=== PATIENT | female | born 1950 | race Caucasian/White ===

== ENCOUNTER → 2017-06-21 14:04 | Outpatient (POV) | payer MEDICARE, MEDICAID, SELFPAY | PROVIDERS: Visit Provider Nurse Practitioner Acute Care | DX: Z00.00 Encounter for general adult medical examination without abnormal findings (principal) ==

== ENCOUNTER 2017-08-02 08:35 | Day surgery (SDC) | payer MEDICARE, MEDICAID, SELFPAY ==
[2017-08-02] VITALS (7 sets, daily range): BP systolic 101–154; BP diastolic 62–88; PULSE 67–77; RESP 18–20; TEMP 36.6–36.9; O2SAT 95–99
--- NOTE | 2017-08-02 09:07 | HMH.ANESCL ---
[facility] Anesthesia Checklist - Patient Identification Patient Identification: Arm Band, Verbal (Name & ) - Structural Data Admitted From: Home Planned Operative Procedure/s: egd/colon Consent for Planned Operative Procedure(s) Verified: Yes Verified Documents: Surgical Consent - NPO Status Verified Time NPO: 00:00 - Additional verifications Patient : No Anesthesia Reactions: No Hx Blood Transfusions: Yes Blood Transfusion Reaction: No Cephalosporin Allergy: No Previous Colonoscopy: Yes - Cardiovascular Assessment Heart Sounds: S1 & S2 Pulse Strength: Baseline Pulse Rhythm: Regular Peripheral Edema: No - Airway Assessment C-Spine Mobility Assessed: Yes TMJ Mobility Assessed: Yes Dentition: Edentulous - Neurological Assessment Level of Consciousness: Awake, Alert, Appropriate Hx Seizures: No Numbness or tingling in extremities: No - Anesthesia Plan Anesthesia Risk discussed: Yes Anesthesia Plan: Verified ASA Class: III Anesthesia Type: MAC [facility] Anesthesia HX I have reviewed the patient's past medical history: Yes Medical History: Reports:: Coronary Artery Disease, Cerebrovascular Accident (MINI), Diabetes Mellitus Type 2 (iddm), Gastroesophageal Reflux Disease(GERD), Hyperlipidemia, Hypertension, Lung Disease (copd) Denies:: Diabetes Mellitus Type 1, Internal Pacemaker Other Surgeries: Yes: Cardiac Catheterization, Coronary Stent, Hysterectomy-Total, Open Heart Surgery, Other (CHOLECYSECTOMY, CABG,LHC). No: Pacemaker *Family Hx:: Non-contributory
[2017-08-02 09:20] LABS: POC Glucose,Bedside 146 mg/dL (70-110)
--- NOTE | 2017-08-02 09:51 | HMH.PROC ---
[facility] Procedure Note Procedure Note:: Upper Endoscopy Procedure Report: Esophagogastroduodenoscopy with cold biopsies and TTS balloon dilation Endoscopost: Anirudh Blankenship II, MD Referring Physician: Kiera Qeuvedo Date of Procedure: August 02, 2017 Equipment: Olympus GIF 180 standard upper endoscope Sedation: MAC sedation Indications: Mrs. Caraballo is a 66-year-old female with dyspepsia. She has had mostly lower abdominal pain and pressure but some epigastric and generalized abdominal discomfort with bloating. She has noted nausea, reflux, regurgitation and some vomiting. She also has had chronic constipation. She has been on Linzess, pantoprazole and Reglan. She has lost 10 pounds. She does report some dysphagia/globus sensation. Procedure: Prior to the procedure, a history and physical exam was performed, and patient's medications and allergies were reviewed. The risks, benefits and alternatives of the sedation and procedure were discussed with the patient. All questions were answered and informed consent was obtained. The patient was brought to the procedure room. Patient identification and proposed procedure were verified by the physician and the nurse. The patient was placed in a left lateral decubitus position and the scope was passed under direct vision. Throughout the procedure, the patient's blood pressure, pulse, and oxygen saturations were monitored continuously. The upper GI endoscopy was accomplished without difficulty. The patient tolerated the procedure well. Findings: The scope was passed directly into the upper esophagus and advanced to the third portion of the duodenum. The post bulbar duodenum and duodenal bulb were normal with normal mucosa and conniventes. 2 biopsies were taken from the post bulbar duodenum to rule out celiac disease. The scope was withdrawn through a normal duodenal bulb and pylorus into the stomach. There was some pylorospasm. There was bile reflux with linear erythema of the antrum and body of the stomach. The remainder of the antrum, body and fundus of the stomach were grossly normal. Upon retroflexion there was no hiatal hernia. 2 biopsies were taken in the antrum and along the lesser curvature for histology to rule out gastritis and/or H pylori. The scope was then withdrawn into the esophagus. There were tertiary contractions and evidence of moderate esophageal dysmotility. The entire esophagus was dilated to 60 [place]/20 mm with a TTS hydrostatic balloon with some resistance at the cricopharyngeus. The remainder of the esophageal mucosa was normal. Impression: 1. Cricopharyngeal spasm 2. Nonerosive GERD with mild esophageal dysmotility 3. Bile reflux with mild linear reactive gastritis and pylorospasm Plan: I do feel that the patient has functional dyspepsia and IBS-constipation. I will discuss additional dietary measures and treatment options. I will proceed with colonoscopy.
--- NOTE | 2017-08-02 09:55 | P.PCN_ITS ---
[facility] Procedure Note Procedure Note:: Upper Endoscopy Procedure Report: Esophagogastroduodenoscopy with cold biopsies and TTS balloon dilation Endoscopost: Anirudh Blankenship II, MD Referring Physician: Kiera Quevedo Date of Procedure: August 02, 2017 Equipment: Olympus GIF 180 standard upper endoscope Sedation: MAC sedation Indications: Mrs. Caraballo is a 66-year-old female with dyspepsia. She has had mostly lower abdominal pain and pressure but some epigastric and generalized abdominal discomfort with bloating. She has noted nausea, reflux, regurgitation and some vomiting. She also has had chronic constipation. She has been on Linzess, pantoprazole and Reglan. She has lost 10 pounds. She does report some dysphagia/globus sensation. Procedure: Prior to the procedure, a history and physical exam was performed, and patient' s medications and allergies were reviewed. The risks, benefits and alternatives of the sedation and procedure were discussed with the patient. All questions were answered and informed consent was obtained. The patient was brought to the procedure room. Patient identification and proposed procedure were verified by the physician and the nurse. The patient was placed in a left lateral decubitus position and the scope was passed under direct vision. Throughout the procedure, the patient's blood pressure, pulse, and oxygen saturations were monitored continuously. The upper GI endoscopy was accomplished without difficulty. The patient tolerated the procedure well. Findings: The scope was passed directly into the upper esophagus and advanced to the third portion of the duodenum. The post bulbar duodenum and duodenal bulb were normal with normal mucosa and conniventes. 2 biopsies were taken from the post bulbar duodenum to rule out celiac disease. The scope was withdrawn through a normal duodenal bulb and pylorus into the stomach. There was some pylorospasm. There was bile reflux with linear erythema of the antrum and body of the stomach. The remainder of the antrum, body and fundus of the stomach were grossly normal. Upon retroflexion there was no hiatal hernia. 2 biopsies were taken in the antrum and along the lesser curvature for histology to rule out gastritis and/or H pylori. The scope was then withdrawn into the esophagus. There were tertiary contractions and evidence of moderate esophageal dysmotility. The entire esophagus was dilated to 60 [place]/20 mm with a TTS hydrostatic balloon with some resistance at the cricopharyngeus. The remainder of the esophageal mucosa was normal. Impression: 1. Cricopharyngeal spasm 2. Nonerosive GERD with mild esophageal dysmotility 3. Bile reflux with mild linear reactive gastritis and pylorospasm Plan: I do feel that the patient has functional dyspepsia and IBS-constipation. I will discuss additional dietary measures and treatment options. I will proceed with colonoscopy.
--- NOTE | 2017-08-02 09:55 | HMH.PROC ---
[facility] Procedure Note Procedure Note:: Colonoscopy Procedure Report: Colonoscopy Endoscopist: Anirudh Blankenship II, MD Referring physician: Kiera SANCHEZ Date of Procedure: August 02, 2017 Equipment: Olympus 180 variable stiffness pediatric colonoscope Sedation: MAC sedation Indication: Mrs. Caraballo is a 66-year-old female with lower abdominal pain, bloating and marked constipation. She is lost 10 pounds. She does state that her brother and father had colon cancer in their early 70s. She has had no prior screening colonoscopy. She does have moderate dyspepsia. Procedure: Prior to the procedure, a history and physical exam was performed, and patient's medications and allergies were reviewed. The risks, benefits and alternatives of the sedation and procedure were discussed with the patient. All questions were answered and informed consent was obtained. The patient was brought to the procedure room. Patient identification and proposed procedure were verified by the physician and the nurse. The patient was placed in a left lateral decubitus position and the scope was passed under direct vision. Throughout the procedure, the patient's blood pressure, pulse, and oxygen saturations were monitored continuously. The colonoscopy was accomplished without difficulty. The patient tolerated the procedure well. Findings: On digital rectal examination there was normal rectal tone. There were no external hemorrhoids. The colonoscope was introduced through the anal canal to the rectum and advanced to the ascending colon. The right colon and cecum could not be visualized well due to marked amount of dark brown liquid and solid stool with poor preparation. The remaining ascending and transverse colon and mucosa were grossly normal. There were a few scattered diverticuli throughout the descending and sigmoid colon (LEFT colon). The rectum itself was normal. Upon retroflexion within the rectum there were grade 1 internal hemorrhoids. Impression: 1. Left-sided diverticulosis 2. Very poor preparation of right colon ([place] preparation score 5) 3. Grade 1 internal hemorrhoids Plan: Based upon poor screening exam because of preparation, would recommend repeat colonoscopy in one year especially with patient's family history. I would continue to treat dyspepsia and IBS-C.
--- NOTE | 2017-08-02 10:12 | P.PCN_ITS ---
[facility] Procedure Note Procedure Note:: Colonoscopy Procedure Report: Colonoscopy Endoscopist: Anirudh Blankenship II, MD Referring physician: Kiera SANCHEZ Date of Procedure: August 02, 2017 Equipment: Olympus 180 variable stiffness pediatric colonoscope Sedation: MAC sedation Indication: Mrs. Caraballo is a 66-year-old female with lower abdominal pain, bloating and marked constipation. She is lost 10 pounds. She does state that her brother and father had colon cancer in their early 70s. She has had no prior screening colonoscopy. She does have moderate dyspepsia. Procedure: Prior to the procedure, a history and physical exam was performed, and patient' s medications and allergies were reviewed. The risks, benefits and alternatives of the sedation and procedure were discussed with the patient. All questions were answered and informed consent was obtained. The patient was brought to the procedure room. Patient identification and proposed procedure were verified by the physician and the nurse. The patient was placed in a left lateral decubitus position and the scope was passed under direct vision. Throughout the procedure, the patient's blood pressure, pulse, and oxygen saturations were monitored continuously. The colonoscopy was accomplished without difficulty. The patient tolerated the procedure well. Findings: On digital rectal examination there was normal rectal tone. There were no external hemorrhoids. The colonoscope was introduced through the anal canal to the rectum and advanced to the ascending colon. The right colon and cecum could not be visualized well due to marked amount of dark brown liquid and solid stool with poor preparation. The remaining ascending and transverse colon and mucosa were grossly normal. There were a few scattered diverticuli throughout the descending and sigmoid colon (LEFT colon). The rectum itself was normal. Upon retroflexion within the rectum there were grade 1 internal hemorrhoids. Impression: 1. Left-sided diverticulosis 2. Very poor preparation of right colon ([place] preparation score 5) 3. Grade 1 internal hemorrhoids Plan: Based upon poor screening exam because of preparation, would recommend repeat colonoscopy in one year especially with patient's family history. I would continue to treat dyspepsia and IBS-C.
== END 2017-08-02 11:05 | disposition home or self-care (01) ==
PROVIDERS: Visit Provider Internal Medicine Gastroenterology
PROC: 0DJ08ZZ Inspection of Upper Intestinal Tract, Via Natural or Artificial Opening Endoscopic (ICD-10-PCS; CPT 43235; principal; 2017-08-02 09:30)
DX: K57.30 Diverticulosis of large intestine without perforation or abscess without bleeding (principal); K64.0 First degree hemorrhoids; J39.2 Other diseases of pharynx; K21.9 Gastro-esophageal reflux disease without esophagitis; K22.4 Dyskinesia of esophagus; K29.70 Gastritis, unspecified, without bleeding; Z80.0 Family history of malignant neoplasm of digestive organs
CPT/HCPCS: 43239; 43249; 45378; 82962; 88305

== ENCOUNTER → 2017-08-03 17:28 | Outpatient (CLI) | payer MEDICARE, MEDICAID, SELFPAY | PROVIDERS: Visit Provider Podiatrist | DX: B35.1 Tinea unguium (principal) | CPT/HCPCS: 87102; 87206; 87220 ==

== ENCOUNTER → 2017-08-20 09:10 | Outpatient (POV) | payer MEDICARE, MEDICAID, SELFPAY | PROVIDERS: Visit Provider Podiatrist | DX: Z00.00 Encounter for general adult medical examination without abnormal findings (principal) ==

== ENCOUNTER → 2017-08-27 12:32 | Outpatient (CLI) | payer MEDICARE, MEDICAID, SELFPAY ==
--- NOTE | 2017-08-27 | US_ITS ---
US Arterial Ankle Brachial Ind INDICATION: Current smoker, diabetes, bilateral leg pain, bilateral rest pain, bilateral claudication ORDERING PHYSICIAN: Kiera Quevedo PATIENT AGE: 66 years TECHNIQUE: Segmental pressures obtained of both right and left leg. These are compared to brachial blood pressure to yield index at each level sampled including summary AKILAH. The data sheets from the procedure are available in PACS FINDINGS Rest study only performed today No prior studies available for comparison. Blood pressures reported are in millimeters mercury. RIGHT LEG AKILAH = 0.7. Right TBI is 0.5 Brachial BP: 105 Thigh BP: 91 Calf BP: 70 Ankle PT: 75 Ankle DP : 71 Digit =50 LEFT LEG AKILAH = 0.8 Left TBI is 0.5 Brachial BPD: 109 Thigh BP: 83 Calf BP: 77 Ankle PT:86 Ankle DP: 74 Digit = 55 Pulses and waveforms: Diminished pulses and waveforms bilaterally IMPRESSION: 1. The ABIs are low bilaterally consistent with mild atherosclerotic disease. 2. The TBI's are also low consistent with associated small vessel disease
== END ==
PROVIDERS: PCP Nurse Practitioner Family; Visit Provider Nurse Practitioner Family
DX: I73.9 Peripheral vascular disease, unspecified (principal); M79.604 Pain in right leg; M79.605 Pain in left leg
CPT/HCPCS: 93922

== ENCOUNTER → 2017-10-08 09:26 | Outpatient (POV) | payer MEDICARE, MEDICAID, SELFPAY | PROVIDERS: PCP Nurse Practitioner Family; Visit Provider Podiatrist | DX: Z00.00 Encounter for general adult medical examination without abnormal findings (principal) ==

== ENCOUNTER → 2017-11-05 11:12 | Outpatient (POV) | payer MEDICARE, MEDICAID, SELFPAY | PROVIDERS: PCP Nurse Practitioner Family; Visit Provider Podiatrist | DX: Z00.00 Encounter for general adult medical examination without abnormal findings (principal) ==

== ENCOUNTER → 2017-12-07 10:43 | Outpatient (CLI) | payer MEDICARE, MEDICAID, SELFPAY ==
[2017-12-07 12:00] LABS: Basophils # 0.1 K/mm3 (0-0.2); Basophils % 1.2 % (0.1-2.0); Eosinophils # 0.2 K/mm3 (0.0-0.4); Eosinophils % 1.4 % (0.1-12.0); Hematocrit 44.8 % (37.0-47.0); Hemoglobin 14.1 g/dL (12.2-16.2); Lymphocytes # 3.6 K/mm3 (0.7-4.5); Lymphocytes % 30.5 K/mm3 (10-50); Mean Corpuscular HGB Conc 31.4 g/dL (31.8-35.4); Mean Corpuscular Hemoglobin 28.8 pg (27.0-31.2); Mean Corpuscular Volume 91.7 fl (81-99); Mean Platelet Volume 9.5 fl (7.4-10.4); Monocytes # 0.8 K/mm3 (0.1-1.0); Monocytes % 6.2 % (1.7-9.3); Neutrophils # 7.3 K/mm3 (1.8-7.8); Neutrophils % 60.7 % (37.0-80.0); Platelet Count 239 K/mm3 (142-424); Red Blood Count 4.89 M/mm3 (4.20-5.40)
[2017-12-07 12:53] LABS: Alanine Aminotransferase 17 U/L (12-78); Albumin Level 3.6 gm/dL (3.4-5.0); Albumin/Globulin Ratio 1.2 (1.1-1.8); Alkaline Phosphatase 113 U/L (46-116); Anion Gap 9.9 mEq/L (5-15); Aspartate Amino Transferase 11 U/L (15-37); Bilirubin,Total 0.2 mg/dL (0.2-1.0); Blood Urea Nitrogen 8 mg/dL (7-18); Calcium 9.1 mg/dL (8.5-10.1); Carbon Dioxide 29 mmol/L (21.0-32.0); Chloride 106 mmol/L (98-107); Creatinine,Serum 0.82 mg/dL (0.55-1.02); Estimated Glomerular Filt Rate 69 ml/min (>60); Free T4 (Free Thyroxine) 0.69 ng/dl (0.76-1.46); GFR (African American) 84 ML/MIN (>60); Globulin 3.1 gm/dl (1.3-3.2); Glucose 150 mg/dL (74-106); Potassium 4.9 mmoL/L (3.5-5.1); Sodium 140 mmol/L (136-145); Total Protein,Serum 6.7 gm/dL (6.4-8.2)
[2017-12-07 13:02] LABS: Hemoglobin A1C 7.5 % (0.0-7.0)
== END ==
PROVIDERS: PCP Nurse Practitioner Family; Visit Provider Nurse Practitioner Family
DX: R53.83 Other fatigue (principal); I73.9 Peripheral vascular disease, unspecified; E11.42 Type 2 diabetes mellitus with diabetic polyneuropathy; I10 Essential (primary) hypertension
CPT/HCPCS: 36415; 80053; 83036; 84439; 84443; 85025

== ENCOUNTER → 2017-12-17 06:43 | Outpatient (CLI) | payer MEDICARE, MEDICAID, SELFPAY ==
--- NOTE | 2017-12-17 07:09 | NM_ITS ---
History and Indications: Coronary artery disease, previous LA, hypertension, diabetes, hyperlipidemia, tobacco use, shortness of breath, palpitations and fatigue Procedure: Patient received a 0.4 mg of Lexiscan, resting heart rate was 77 beats prominent, resting blood pressure 130/71, with Lexiscan maximum heart rate achieved was 96 bpm which is less than 85% of the maximum predicted heart rate and the blood pressure was 118/66. With Lexiscan patient complained of shortness of breath and chest discomfort Electrocardiogram: Resting electrocardiogram showed sinus rhythm right bundle branch block, with Lexiscan there is less than 1.[address] segment depression noted from the baseline EKG. The EKG portion of the Lexiscan Myoview is nondiagnostic. Cardiac stress and resting SPECT images: Cardiac stress and rest SPECT images were obtained using technetium 99 Myoview 31.2 mCi at stress and 10.4 mCi at rest. Gated SPECT further analysis of segmental wall motion and calculation of the ejection fraction also done. Cardiac stress and rest SPECT images show a mild fixed defect anteroseptally with normal contractility gated SPECT is likely secondary to soft tissue attenuation, no reversible, computer derived ejection fraction is 55% with no obvious regional wall motion abnormality, right ventricle is normal size and contractility. Conclusion: 1. The EKG portion of the Lexiscan Myoview is nondiagnostic. 2. No obvious scintigraphic evidence of reversible ischemia seen, computer derived ejection fraction is 55% with no obvious regional wall motion abnormality, right ventricle is normal size and contractility. 3. Normal Lexiscan Myoview study.
--- NOTE | 2017-12-17 09:12 | HMH.ITSHM ---
gabapentin metoprolol pantoprazole metodopramide aspirin ramitidine montelukust busprone clopidogrel cetirizine magnesium
== END ==
PROVIDERS: PCP Nurse Practitioner Family; Visit Provider Nurse Practitioner Family
DX: R53.83 Other fatigue (principal); I73.9 Peripheral vascular disease, unspecified; I10 Essential (primary) hypertension; I45.2 Bifascicular block; I25.10 Atherosclerotic heart disease of native coronary artery without angina pectoris
CPT/HCPCS: 78452; 93017; A9502; J2785

== ENCOUNTER → 2018-01-25 08:57 | Outpatient (CLI) | payer MEDICARE, MEDICAID, SELFPAY ==
--- NOTE | 2018-01-25 08:57 | CA_ITS ---
PROCEDURE: 2-D M-mode and color Doppler study INDICATIONS FOR THE TEST: Chest pain + COPD Heart Murmur Tobacco Smoking+ Palpitations+ Fatigue+ Syncope Edema Hypertension Diabetes Mellitus+ Rheumatic Fever SOB+PARMAR Obesity Hyperlipidemia+ Family History HD Additional History CABG PATIENT INFORMATION HEIGHT:65 WEIGHT:125 GENDER: Female B/P:98/68 2-D/M-MODE INTERPRETATION: 2-D MEASUREMENTS OBSERVED VALUES IN CMS Right Ventricular Dimension (RVDd) 2.6 Interventricular Septum (Thickness)(IVsd) 1.0 Left Ventricular Internal Dimensions(LVIDd) 3.5 Left Ventricular Posterior Wall (Thickness)(LVPWd) 0.9 Aortic Root 3.7 Aortic Cusp Separation 2.0 Left Atrial Dimensions (LAD) 2.9 2D 1. Left atrium is normal size, left ventricle is normal size, there is no concentric left ventricular hypertrophy, visually estimated ejection fraction approximately 50%, there appears to be mild hypokinesis involving the distal septum and apical wall. 2. The right atrium and right ventricle are normal size and contractility. 3. The aortic valve is minimally thickened and fibrosed. 4. The mitral and tricuspid valve are grossly normal. 5. The pulmonic valve is poorly visualized. 6. No significant pericardial effusion noted. DOPPLER INTERROGATION: Doppler interrogation of the aortic, mitral and tricuspid valvular presence of mild mitral and tricuspid regurgitation, tricuspid regurgitant jet velocity is insufficient for calculation of the right ventricular systolic pressure, diastolic parameters are inconclusive. CONCLUSION: 1. Mildly enlarged, normal left ventricular size, visually estimated ejection fraction 50% with segmental wall motion abnormality described above, diastolic parameters are inconclusive. 2. Mild mitral and tricuspid regurgitation 3. No significant pericardial effusion noted.
--- NOTE | 2018-01-25 08:57 | US_ITS ---
US Arterial Ankle Brachial Ind History: Breast pain, claudication, smoker ITS.REASON: claudication ORDERING PHYSICIAN: Ibrahima Musa MD PATIENT AGE: 67 years TECHNIQUE: Segmental pressures obtained of both right and left leg. These are compared to brachial blood pressure to yield index at each level sampled including summary AKILAH. The data sheets from the procedure are available in PACS FINDINGS Rest study only performed today No prior studies available for comparison. Blood pressures reported are in millimeters mercury. RIGHT LEG AKILAH = .6. RIGHT LEG TBI=.2 Brachial BP: 128 Thigh BP: 98 Calf BP: 74 Ankle PT: 72 Ankle DP : 79 Digit =27 LEFT LEG AKILAH = .7 LEFT LEG TBI= .4 Brachial BPD: 117 Thigh BP: 110 Calf BP: 79 Ankle PT:88 Ankle DP: 90 Digit = 47 Pulses and waveforms: Diminished pulses and waveforms IMPRESSION: Low right and left ABIs of 0.6 and 0.7 respectively indicating moderate peripheral vascular disease
== END ==
PROVIDERS: PCP Nurse Practitioner Family; Visit Provider Internal Medicine
DX: R06.00 Dyspnea, unspecified (principal); I73.9 Peripheral vascular disease, unspecified; F17.200 Nicotine dependence, unspecified, uncomplicated
CPT/HCPCS: 93306; 93922

== ENCOUNTER → 2018-06-08 08:45 | Outpatient (CLI) | payer MEDICARE, MEDICAID, SELFPAY ==
--- NOTE | 2018-06-08 08:52 | US_ITS ---
US Arterial Ankle Brachial Ind History: Bilateral leg pain, recent stents with pain bilaterally. Current smoker, diabetes ORDERING PHYSICIAN: Kiera Quevedo PATIENT AGE: 67 years TECHNIQUE: Segmental pressures obtained of both right and left leg. These are compared to brachial blood pressure to yield index at each level sampled including summary AKILAH. The data sheets from the procedure are available in PACS FINDINGS Rest study only performed today No prior studies available for comparison. Blood pressures reported are in millimeters mercury. RIGHT LEG AKILAH = 1.1. RIGHT LEG TBI=.42 Brachial BP: 120 Thigh BP: >254 Calf BP: 119 Ankle PT: 136 Ankle DP : 139 Digit =51 LEFT LEG AKILAH = 1.0 LEFT LEG TBI= .4 Brachial BPD: 121 Thigh BP: 113 Calf BP: 115 Ankle PT:117 Ankle DP: 110 Digit = 44 Pulses and waveforms: Normal waveforms. Dorsalis pedis pulses are diminished bilaterally IMPRESSION: 1. Normal ABIs on both sides 2. Low TBI on both sides suggesting small vessel disease
--- NOTE | 2018-06-08 09:21 | XR_ITS ---
EXAM: XR thoracic spine 3V HISTORY: ITS.REASON: THORACIC SPINE PAIN Comparison: 02/09/2018 FINDINGS: There is moderate thoracic kyphosis with mild chronic wedging anteriorly of T10 and T11 unchanged from 02/09/2018. 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 There is an epidural stimulator device present at the T10 level. The extraspinal portion of the device lies within the subcutaneous tissues at the T11 and T12 area. Cannot confirm that the device is protruding into the scan from this study. No significant change from 02/09/2018. 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 Epidural stimulator device once again noted as described above. CT may provide further evaluation if there is concern that the device wires may be protruding into the skin
== END ==
PROVIDERS: PCP Family Medicine; Visit Provider Nurse Practitioner Family
DX: I73.9 Peripheral vascular disease, unspecified (principal); M54.6 Pain in thoracic spine
CPT/HCPCS: 72072; 93922

== ENCOUNTER → 2018-07-15 09:43 | Outpatient (CLI) | payer MEDICARE, MEDICAID, SELFPAY ==
--- NOTE | 2018-07-15 09:46 | XR_ITS ---
XR DEXA axial skeleton HISTORY: ITS.REASON: OSTEOPENIA ORDERING PHYSICIAN: Kiera Quevedo PATIENT AGE: 67 years COMPARISON: 09/12/2009 FINDINGS: The BMD measured at the Right femoral neck is 0.658 g/cm squared with a T score of -2.7. This is considered OSTEOPOROTIC according to the World Health Organization criteria. Fracture risk is High. Treatment is advised. The mean hip density has a T score of -2.3 which has decreased by 16%. Lumbar spine density has decreased by 1% from 09/12/2009 IMPRESSION: Osteoporosis with high fracture risk. Treatment suggested. Suggest follow-up exam in one year
== END ==
PROVIDERS: PCP Nurse Practitioner Family; Visit Provider Nurse Practitioner Family
DX: M85.89 Other specified disorders of bone density and structure, multiple sites (principal)
CPT/HCPCS: 77080

== ENCOUNTER → 2018-10-03 09:35 | Outpatient (CLI) | payer MEDICARE, MEDICAID, SELFPAY ==
--- NOTE | 2018-10-03 09:39 | XR_ITS ---
XR forearm RT 2V HISTORY: Pain following injury with bruising ITS.REASON: RT FOREARM INJURY ORDERING PHYSICIAN: Kiera Quevedo APRN PATIENT AGE: 68 years COMPARISON: None FINDINGS: No obvious fracture, dislocation, lytic change or blastic change. Normal mineralization. Unremarkable soft tissues IMPRESSION: Negative forearm
== END ==
PROVIDERS: PCP Nurse Practitioner Family; Visit Provider Nurse Practitioner Family
DX: S59.911A Unspecified injury of right forearm, initial encounter (principal)
CPT/HCPCS: 73090

== ENCOUNTER 2018-10-21 07:24 | Day surgery (SDC) | payer MEDICARE, MEDICAID, SELFPAY ==
[2018-10-21] VITALS (20 sets, daily range): BP systolic 125–154; BP diastolic 76–96; PULSE 66–87; RESP 16–18; TEMP 36.4; O2SAT 94–100; BMI 18.6
--- NOTE | 2018-10-21 | IR_ITS ---
CARDIAC CATHETERIZATION DATE OF CATHETERIZATION:10/21/2018 10:35 AM PROCEDURES: 1. Left heart catheterization 2. Selective coronary angiogram 3. Left ventriculogram Left internal mammary angiography Selective engagement of the saphenous vein graft to the right coronary artery Selective engagement of the saphenous vein graft to the circumflex artery INDICATION FOR TEST: 1. Coronary artery disease 2. Angina pectoris 3. History of coronary artery bypass surgery 4. History of coronary artery stenting 5. Accelerated angina pectoris COMPLICATIONS: None ESTIMATED BLOOD LOSS: Less than 10 ml. TECHNIQUE: One percent lidocaine was used to anesthetize the right groin. The right femoral artery was accessed via the Seldinger technique. A 4-[place] Island[place] sheath was placed in the right femoral artery. The JR-4 catheter was also used to perform left heart catheterization and left ventriculography. The JR4 catheter was used to selectively intubate each saphenous vein graft as well as nonselectively engage the left internal mammary artery. At the end of the procedure the patient was transferred to the post-op holding area in stable condition for arterial sheath removal. ANGIOGRAPHIC RESULTS: 1. The left main artery normal 2. The left anterior descending artery has proximal stent which has initially 30% in-stent restenosis followed by mid vessel 80% complex in-stent restenosis. Competitive flow is identified distally from the left internal mammary artery. 3. The circumflex artery has severe proximal disease with 90% in-stent restenosis at mid segment and then occluded prior to giving off a substantive obtuse marginal arteries 4. The right coronary artery is subtotally occluded in the mid segment 5. The STAPLES ventriculogram reveals preserved 60% 6. The left ventricular end-diastolic pressure 10 mmHg The left internal mammary artery is widely patent to the mid LAD. Distal to the anastomosis there is excellent filling of a small to medium sized caliber LAD system The saphenous vein graft to the right coronary artery is widely patent Saphenous vein graft to the circumflex which artery has a stent mid segment which is widely patent with minimal in-stent restenosis. Graft itself is widely patent IMPRESSION: 1. 2. PLAN: 1. 2. 3.
[2018-10-21 09:05] LABS: Anion Gap 16.1 mEq/L (5-15); Blood Urea Nitrogen 5 mg/dL (7-18); Calcium 9.3 mg/dL (8.5-10.1); Carbon Dioxide 25 mmol/L (21.0-32.0); Chloride 104 mmol/L (98-107); Creatinine Clearance Estimated 43 mL/min (50-200); Creatinine,Serum 0.86 mg/dL (0.55-1.02); Estimated Glomerular Filt Rate 65 ml/min (>60); GFR (African American) 79 ML/MIN (>60); Glucose 143 mg/dL (74-106); Potassium 4.1 mmoL/L (3.5-5.1); Sodium 141 mmol/L (136-145)
[2018-10-21 09:06] LABS: Basophils # 0.1 K/mm3 (0-0.2); Basophils % 0.8 % (0.1-2.0); Eosinophils # 0.1 K/mm3 (0.0-0.4); Eosinophils % 0.6 % (0.1-12.0); Hematocrit 45.5 % (37.0-47.0); Hemoglobin 14.4 g/dL (12.2-16.2); Lymphocytes # 2.9 K/mm3 (0.7-4.5); Lymphocytes % 20.6 % (10-50); Mean Corpuscular HGB Conc 31.6 g/dL (31.8-35.4); Mean Corpuscular Hemoglobin 28.3 pg (27.0-31.2); Mean Corpuscular Volume 89.4 fl (81-99); Mean Platelet Volume 8.6 fl (7.4-10.4); Monocytes # 0.9 K/mm3 (0.1-1.0); Monocytes % 6.3 % (1.7-9.3); Neutrophils % 71.7 % (37.0-80.0); Platelet Count 290 K/mm3 (142-424); Red Blood Count 5.09 M/mm3 (4.20-5.40); Red Cell Distribution Width 16.3 % (11.5-17.5); White Blood Count 13.9 K/mm3 (4.8-10.8)
== END 2018-10-21 14:06 | disposition home or self-care (01) ==
LOC: CATHLAB 07:26
PROVIDERS: PCP Family Medicine; Visit Provider Internal Medicine
DX: I25.118 Atherosclerotic heart disease of native coronary artery with other forms of angina pectoris (principal); Z95.1 Presence of aortocoronary bypass graft; Z95.5 Presence of coronary angioplasty implant and graft; Z72.0 Tobacco use; J44.9 Chronic obstructive pulmonary disease, unspecified; Z79.4 Long term (current) use of insulin; Z79.82 Long term (current) use of aspirin; Z79.84 Long term (current) use of oral hypoglycemic drugs; Z79.899 Other long term (current) drug therapy; Z79.02 Long term (current) use of antithrombotics/antiplatelets; Z88.1 Allergy status to other antibiotic agents; I45.2 Bifascicular block; I77.89 Other specified disorders of arteries and arterioles
CPT/HCPCS: 80048; 85025; 93459; 99152; C1725; C1769; C1894; J1644; Q9967

== ENCOUNTER → 2018-10-31 15:04 | Outpatient (CLI) | payer MEDICARE, MEDICAID, SELFPAY ==
--- NOTE | 2018-10-31 15:08 | XR_ITS ---
XR chest 2V HISTORY: Shortness of breath, heart disease ITS.REASON: SOB ORDERING PHYSICIAN: Kiera Quevedo APRN PATIENT AGE: 68 years COMPARISON: None FINDINGS: Prior CABG. Coronary artery stents are present. COPD. No lobar consolidation or collapse. There is mild exaggeration of thoracic kyphosis. There is minimal blunting of the right CP angle. IMPRESSION: COPD with trace right effusion, prior CABG with coronary artery stents
== END ==
PROVIDERS: PCP Nurse Practitioner Family; Visit Provider Nurse Practitioner Family
DX: R06.02 Shortness of breath (principal)
CPT/HCPCS: 71046

== ENCOUNTER → 2018-12-05 09:00 | Outpatient (POV) | payer MEDICARE, MEDICAID, SELFPAY | PROVIDERS: Visit Provider Nurse Practitioner Family | DX: Z00.00 Encounter for general adult medical examination without abnormal findings (principal) ==

== ENCOUNTER → 2019-02-15 12:31 | Outpatient (CLI) | payer MEDICARE, SELFPAY ==
--- NOTE | 2019-02-15 12:34 | XR_ITS ---
PROCEDURE: XR CHEST 2V CLINICAL HISTORY: wheezing Wheezing and cough, smoker COMPARISON: CXR CHEST(2 VIEWS-NOT PORTABLE) from 04/22/2016 CXR2V XR chest 2V from 02/09/[address] angio chest from 02/09/2018 XR RIBS LT MIN 3V W CXR1V from 01/28/2019 FINDINGS: Prior CABG. Epidural stimulator device is noted over the mid to lower thoracic spine. Coronary artery stent is present. The lungs are clear without infiltrates, suspicious nodules, or pleural effusions. No acute bony abnormalities. 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 No change with no acute finding Dictated by: James Griggs MD 02/15/2019 14:22 Electronically signed by James Griggs MD in [place] 02/15/2019 14:22
== END ==
PROVIDERS: PCP Nurse Practitioner Family; Visit Provider Nurse Practitioner Family
DX: R06.2 Wheezing; R00.2 Palpitations; I20.9 Angina pectoris, unspecified; E78.5 Hyperlipidemia, unspecified; F17.200 Nicotine dependence, unspecified, uncomplicated; Z95.1 Presence of aortocoronary bypass graft
CPT/HCPCS: 71046

== ENCOUNTER → 2019-02-28 13:55 | Outpatient (CLI) | payer MEDICARE, SELFPAY ==
--- NOTE | 2019-02-28 14:00 | CT_ITS ---
PROCEDURE: CT HEAD/BRAIN WO CON CLINICAL INDICATION: DIZZINESS COMPARISON: HDWO CT HEAD W/O CONTRAST from 03/24/2016 TECHNIQUE: Axial images obtained with sagittal and coronal reformats. All CT scans at the facility use one or more dose reduction, viz: automated exposure control, ma/kV adjustment per patient size (including targeted exams where dose is matched to indication, i.e. head), or iterative reconstruction technique. FINDINGS: No midline shift, mass effect, intracranial hemorrhage, hydrocephalus, or extra-axial fluid collection is evident. The calvarium has an unremarkable appearance. No mastoid effusion. No sinus air-fluid level. IMPRESSION: No acute intracranial finding Dictated by: Ned Garcia 02/28/2019 14:18 Electronically signed by Ned Garcia in [facility] 02/28/2019 14:18
== END ==
PROVIDERS: PCP Nurse Practitioner Family; Visit Provider Nurse Practitioner Family
DX: R42 Dizziness and giddiness (principal)
CPT/HCPCS: 70450

== ENCOUNTER → 2019-07-31 08:22 | Outpatient (CLI) | payer MEDICARE, SELFPAY ==
--- NOTE | 2019-07-31 08:24 | CA_ITS ---
APPROVED REPORT Generator Worker: Celine Hidalgo RVT Laterality: Bilateral Study Quality: Good Indications: verftigo, dizziness Risk Factors Hypertension: Hyperlipidemia Diabetes Smoking Doppler Spectral Velocity Analysis ECA (R) 100.60/0.60 cm/s ECA (L) 80.00/3.90 cm/s dICA (R) 73.00/19.90 cm/s dICA (L) 68.80/15.10 cm/s Eliezer (R) 69.70/20.60 cm/s Eliezer (L) 66.60/10.60 cm/s pICA (R) 52.10/12.70 cm/s pICA (L) 80.30/21.20 cm/s dCCA (R) 59.00/10.50 cm/s dCCA (L) 58.40/14.10 cm/s pCCA (R) 84.20/11.90 cm/s pCCA (L) 70.30/8.50 cm/s Vert (R) 30.30/8.50 cm/s Vert (L) 54.30/11.20 cm/s ICA/CCA 1.24 ICA/CCA 1.37 Conclusion Study suggests 20-49% stenosis of the right internal cartoid artery worsened from the 12/23/15 study. Study suggests 20-49% stenosis of the left internal cartoid artery worsened from the 12/23/15 study. Antegrade flow seen bilateral vertebral arteries. Electronically signed by : James Griggs MD 07/31/2019 17:44:33
[2019-08-01 13:07] LABS: Vitamin B12 216 pg/mL (232-1245)
== END ==
PROVIDERS: PCP Nurse Practitioner Family; Visit Provider Specialist
DX: G47.00 Insomnia, unspecified (principal); G89.29 Other chronic pain; H91.91 Unspecified hearing loss, right ear; M54.2 Cervicalgia; M54.5 Low back pain; R20.0 Anesthesia of skin; R20.2 Paresthesia of skin; R20.8 Other disturbances of skin sensation; R26.81 Unsteadiness on feet; R29.6 Repeated falls; R42 Dizziness and giddiness; Z72.0 Tobacco use
CPT/HCPCS: 36415; 82607; 93880; 94762

== ENCOUNTER 2019-07-31 10:05 | Outpatient (RCR) | payer MEDICARE, SELFPAY ==
--- NOTE | 2019-07-31 11:32 | HMH.PTOPEV ---
PT Outpatient Evaluation Rehab PT Outpatient Evaluation Start: 07/31/19 11:12 Freq: Status: Active Protocol: Document 07/31/19 11:12 DEBI (Rec: 07/31/19 11:32 DEBI [id number]) Electronically Signed By Eddie Mendoza, PT 07/31/19 11:12 Outpatient Therapy Subjective History Subjective History Pt reports h/o chronic LBP over the last ~2 yrs, and reports B LE pain and weakness . Pt reports 2 falls in the last ~month, and reports 2-3 episodes of dizziness/wk. 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 Pt also reports R>L LE swelling. Chief Complaint Pain,Stiff,Swelling,Weakness Symptom Type Ache,Sharp,Dull,Numbness, Tingling Symptoms Relieved By Rest/Positioning,Heat Symptoms Aggravated By Standing,Bending/Stooping, Walking,Lifting Prior Functional Limitations Lifting,Housework,Standing, Walking,Balance Current Functional Limitations Housework,Standing,Walking, Balance Symptom Description Constant and Continuous Level of pain today (0-10) 10 Pain scale - at its best (0-10) 10 Pain scale - at its worst (0-10) 10 Lumbopelvic Eval Posture Thoracic Spine Posture Standing Position Increased Kyphosis Lumbar Spine Posture Standing Position Flattened Assistive device Assistive Devices None / NA Gait Observation General Gait Pattern Observation Hips Posterior to SALONI,Trunk Posterior to SALONI Palapation tenderness bilateral thoracic spinal tenderness Yes: 3/4 lumbar spinal tenderness Yes: 3/4 paraspinal tenderness Yes: 3/4 Lumbar/Sacral Palpation Findings Tenderness Accessory Movement T-spine Vertebrae Accessory Movements Central P/A [place] that Elicit Symptoms T10 bilateral T11 bilateral T12 bilateral L-spine Vertebrae Accessory Movements Central [employer] [place] that Elicit Symptoms L2 bilateral L3 bilateral L4 bilateral L5 bilateral S1 bilateral Range of Motion Lumbar Spine Active Flexion Range of 0-10 Motion (degrees) Lumbar Spine Active Extension Range of 0-10 Motion (degrees) Left Lumbar Spine Lateral Flexion Active 0-10 Range of Motion (degrees) Right Lumbar Spine Lateral Flexion 0-10 Active Range of Motion (deg
--- NOTE | 2019-08-09 10:35 | HMH.RHREAS ---
Rehab Reassessment Rehab OP Re-assessment Start: 08/09/19 10:21 Freq: Status: Active Protocol: Document 08/09/19 10:21 PHORNE (Rec: 08/09/19 10:34 PHORNE [id number]) Electronically Signed By Jethro Almonte, PT 08/09/19 10:21 Rehab Re-assessment Subjective Subjective Pt presents to therapy this date with reports of continued vertigo/dizziness/balance disturbance for > 6 mos. She has significant hx of CVA with R hemiparesis, CAD with CABG and stents, HTN, chronic low back and neck pain, hearing loss R > L, blurry vision with cataracts, mod stenosis of B carotid arteries, PVD. She reports dizziness lasts ~ 20 mins each session and 4-5 sessions/wk. She also reports frequent feeling of lightheadedness. Objective Objective Notes Pt is unable to tolerate positioning for renee-halpike testing or horizontal roll testing for BPPV. She can not tolerate positioning for most oculomotor and gaze stabilization testing due to increased neck pain. She was able to tolerate smooth pursuit which was normal, but unable to perform VOR cancellation or dynamic visual acuity testing. She also had difficulty with testing for saccades and difficulty following directions during most testing procedures. Assessment Progress Assessment No Progress Assessment Notes Pt was evlauated for low back symptoms previously, but did not return for further visits and reports she is unlikely to return for treatment. Unable to fully assess any visual disturbances or vestibular pathology at this time. It was recommended that she seek treatment from an ENT for further testing if she wished
== END 2019-07-31 11:00 | disposition home or self-care (01) ==
LOC: PT 10:05
PROVIDERS: PCP Nurse Practitioner Family; Visit Provider Specialist
DX: M54.2 Cervicalgia (principal); M54.5 Low back pain; G89.29 Other chronic pain; R26.81 Unsteadiness on feet; R42 Dizziness and giddiness; R29.6 Repeated falls; R20.0 Anesthesia of skin; R20.2 Paresthesia of skin
CPT/HCPCS: 97010; 97014; 97035; 97163; 97164; G0283

== ENCOUNTER → 2019-09-11 08:33 | Outpatient (POV) | payer MEDICARE, SELFPAY | PROVIDERS: PCP Nurse Practitioner Family; Visit Provider Specialist | DX: R20.0 Anesthesia of skin (principal) | CPT/HCPCS: 95886; 95909 ==

== ENCOUNTER → 2019-09-11 11:10 | Outpatient (CLI) | payer MEDICARE, SELFPAY ==
[2019-09-14 07:20] LABS: Intrinsic Factor Abs, Serum 1.2 AU/mL (0.0-1.1)
[2019-09-14 18:44] LABS: Antiparietal Cell Antibody 18.8 Units (0.0-20.0)
== END ==
PROVIDERS: Visit Provider Specialist
DX: D51.9 Vitamin B12 deficiency anemia, unspecified (principal); R42 Dizziness and giddiness; R20.0 Anesthesia of skin; R20.2 Paresthesia of skin
CPT/HCPCS: 36415; 83516; 86340; 95886; 95909

== ENCOUNTER → 2019-10-27 10:21 | Outpatient (CLI) | payer MEDICARE, SELFPAY ==
--- NOTE | 2019-10-27 10:28 | XR_ITS ---
PROCEDURE: XR ANKLE RT MIN 3V CLINICAL INDICATION: RT ANKLE SWELLING laterally COMPARISON: None FINDINGS: There is mild diffuse soft tissue swelling both medially and laterally. The medial and lateral malleolus appear intact the ankle mortise appears grossly normal. There is a moderate-sized spur of the calcaneus at the insertion of the Achilles tendon and a tiny calcaneal spur seen at the insertion of the plantar tendon. IMPRESSION: Mild diffuse soft tissue swelling, no definite acute fracture seen Dictated by: Dr. Tacos Chakraborty MD 10/27/2019 11:[address] Tacos Chakraborty MD in [place] 10/27/2019 11:01
== END ==
PROVIDERS: PCP Nurse Practitioner Family; Visit Provider Nurse Practitioner Family
DX: M25.471 Effusion, right ankle (principal)
CPT/HCPCS: 73610

== ENCOUNTER → 2019-11-01 09:48 | Outpatient (CLI) | payer MEDICARE, MEDICAID, SELFPAY ==
--- NOTE | 2019-11-01 | CA_ITS ---
APPROVED REPORT Field Artillery Cannoneer: CICI Laterality: Bilateral Indications: MATTY Risk Factors TIA/CVA History Smoking Doppler Spectral Velocity Analysis ECA (R) 98.80/10.50 cm/s ECA (L) 106.90/8.70 cm/s dICA (R) 98.80/28.40 cm/s dICA (L) 89.00/27.70 cm/s Eliezer (R) 77.80/21.70 cm/s Eliezer (L) 104.80/31.40 cm/s pICA (R) 68.10/18.00 cm/s pICA (L) 98.00/23.90 cm/s dCCA (R) 66.60/18.00 cm/s dCCA (L) 68.80/14.20 cm/s pCCA (R) 97.30/13.50 cm/s pCCA (L) 97.30/15.00 cm/s Vert (R) 47.10/15.00 cm/s Vert (L) 59.70/13.50 cm/s ICA/CCA 1.48 ICA/CCA 1.52 Conclusion Duplex evaluation demonstrates stenosis of the right proximal internal carotid artery in the range of 20-49% with PSV <140 cm/sec, EDV <100 cm/sec, and IC/CC Ratio <4.0. Duplex evaluation demonstrates stenosis of the left proximal internal carotid artery in the range of 20-49% with PSV <140 cm/sec, EDV <100 cm/sec, and IC/CC Ratio <4.0. Electronically signed by : James Griggs MD 11/01/2019 16:20:06
== END ==
PROVIDERS: PCP Nurse Practitioner Family; Visit Provider Nurse Practitioner Family
DX: G45.8 Other transient cerebral ischemic attacks and related syndromes (principal)
CPT/HCPCS: 93880

== ENCOUNTER → 2020-02-09 13:38 | Outpatient (CLI) | payer MEDICARE, SELFPAY ==
[2020-02-11 08:40] LABS: Covid-19 Nasal PCR Sendout UK Not Detected
== END ==
PROVIDERS: PCP Nurse Practitioner Family; Visit Provider Nurse Practitioner Family
DX: Z03.818 Encounter for observation for suspected exposure to other biological agents ruled out (principal)
CPT/HCPCS: U0003

== ENCOUNTER → 2020-02-29 09:38 | Outpatient (CLI) | payer MEDICARE, SELFPAY ==
--- NOTE | 2020-02-29 09:45 | XR_ITS ---
PROCEDURE: XR KNEE RT 3V Referring Doctor: Kiera Quevedo Patient Age:69Y CLINICAL INDICATION: SWELLING ACUTE PAIN S/P KNEE SURG COMPARISON: No exams were available for comparison FINDINGS: Right knee. Three view AP lateral and oblique nonweightbearing images performed with no images for comparison. No fracture or dislocation. No lytic or blastic change. There is normal mineralization. . Of degenerative changes right knee. Mild narrowing and sclerosis about lateral compartment. Mild/Moderate developing tricompartmental marginal osteophytes. Upper normal to perhaps mild increased joint fluid suprapatellar bursa. Long vascular stent segment at the distal SFA and continuing through the popliteal artery IMPRESSION: No acute findings. Arthritic changes right knee. Most evident at lateral compartment followed by patellofemoral joint Scant increased joint fluid likely at suprapatellar bursa Dictated by: Theodore Calderón MD 02/29/2020 14:18 Theodore Calderón MD in [facility] 02/29/2020 14:18
== END ==
PROVIDERS: PCP Nurse Practitioner Family; Visit Provider Nurse Practitioner Family
DX: M25.461 Effusion, right knee (principal); M25.561 Pain in right knee; Z98.890 Other specified postprocedural states
CPT/HCPCS: 73562

== ENCOUNTER → 2020-05-21 10:32 | Outpatient (CLI) | payer MEDICARE, MEDICAID, SELFPAY ==
[2020-05-21 10:57] LABS: Basophils # 0.1 K/mm3 (0-0.2); Basophils % 1.2 % (0.1-2.0); Eosinophils # 0.2 K/mm3 (0.0-0.4); Eosinophils % 1.5 % (0.1-12.0); Hematocrit 39.9 % (37.0-47.0); Hemoglobin 12.7 g/dL (12.2-16.2); Lymphocytes # 3.6 K/mm3 (0.7-4.5); Lymphocytes % 35.3 % (10-50); Mean Corpuscular HGB Conc 31.8 g/dL (31.8-35.4); Mean Corpuscular Hemoglobin 28.4 pg (27.0-31.2); Mean Corpuscular Volume 89.1 fl (81-99); Mean Platelet Volume 8.9 fl (7.4-10.4); Monocytes # 0.8 K/mm3 (0.1-1.0); Monocytes % 7.7 % (1.7-9.3); Neutrophils # 5.5 K/mm3 (1.8-7.8); Neutrophils % 54.2 % (37.0-80.0); Platelet Count 329 K/mm3 (142-424); Red Blood Count 4.48 M/mm3 (4.20-5.40); Red Cell Distribution Width 16.2 % (11.5-17.5); White Blood Count 10.1 K/mm3 (4.8-10.8)
[2020-05-21 11:07] LABS: Chloride 106 mmol/L (98-107); Potassium 4.7 mmoL/L (3.5-5.1); Sodium 139 mmol/L (136-145)
[2020-05-21 11:09] LABS: Alanine Aminotransferase 10 U/L (12-78); Aspartate Amino Transferase 21 U/L (14-36); Blood Urea Nitrogen 10 mg/dl (7-17); Estimated Glomerular Filt Rate 71 ml/min (>60); GFR (African American) 86 ML/MIN (>60)
[2020-05-21 11:10] LABS: Albumin Level 4.2 g/dl (3.5-5.0); Albumin/Globulin Ratio 1.3 (1.1-1.8); Alkaline Phosphatase 103 U/L (38-126); Anion Gap 10.7 mEq/L (5-15); Bilirubin,Total 0.4 mg/dl (0.2-1.3); Calcium 9.5 mg/dl (8.4-10.2); Carbon Dioxide 27 mmol/L (22.0-30.0); Chol/HDL Ratio 3.2 (1-3.5); Cholesterol 221 mg/dl (140-200); Globulin 3.2 g/dL (1.3-3.2); Glucose 128 mg/dl (74-100); HDL Cholesterol 69 mg/dl (40-60); Total Protein,Serum 7.4 g/dl (6.3-8.2); Triglycerides 261 mg/dl (30-150); VLDL Cholesterol 52 mg/dL (0-40)
[2020-05-21 11:21] LABS: Direct LDL Cholesterol 113.48 mg/dL (100-129)
[2020-05-21 11:25] LABS: Troponin I < 0.01 ng/ml (0.00-0.034)
[2020-05-22 12:04] LABS: C-Reactive Protein, Cardiac 0.61 mg/L (0.00-3.00)
== END ==
PROVIDERS: Visit Provider Nurse Practitioner Family
DX: R07.9 Chest pain, unspecified (principal); I25.810 Atherosclerosis of coronary artery bypass graft(s) without angina pectoris
CPT/HCPCS: 36415; 80053; 80061; 83735; 84484; 85025; 86141

== ENCOUNTER → 2020-05-28 10:20 | Outpatient (CLI) | payer MEDICARE, MEDICAID, SELFPAY ==
[2020-05-28 11:13] LABS: Basophils # 0.1 K/mm3 (0-0.2); Basophils % 1.1 % (0.1-2.0); Eosinophils # 0.1 K/mm3 (0.0-0.4); Hematocrit 40.7 % (37.0-47.0); Hemoglobin 12.3 g/dL (12.2-16.2); Mean Corpuscular HGB Conc 30.2 g/dL (31.8-35.4); Mean Corpuscular Hemoglobin 27.5 pg (27.0-31.2); Mean Platelet Volume 8.6 fl (7.4-10.4); Monocytes # 0.7 K/mm3 (0.1-1.0); Monocytes % 6.3 % (1.7-9.3); Neutrophils # 6.9 K/mm3 (1.8-7.8); Neutrophils % 63.6 % (37.0-80.0); Platelet Count 300 K/mm3 (142-424); Red Blood Count 4.48 M/mm3 (4.20-5.40); Red Cell Distribution Width 16.3 % (11.5-17.5); White Blood Count 10.8 K/mm3 (4.8-10.8)
[2020-05-28 11:30] LABS: Troponin I < 0.01 ng/ml (0.00-0.034)
[2020-05-28 12:41] LABS: Coronavirus 19 IgG Antibody Negative (Negative); Coronavirus 19 IgM Antibody Negative (Negative)
[2020-05-28 16:21] LABS: Chloride 106 mmol/L (98-107); Potassium 4.8 mmoL/L (3.5-5.1); Sodium 137 mmol/L (136-145)
[2020-05-28 16:24] LABS: Anion Gap 8.8 mEq/L (5-15); Blood Urea Nitrogen 7 mg/dl (7-17); Calcium 9.6 mg/dl (8.4-10.2); Carbon Dioxide 27 mmol/L (22.0-30.0); Estimated Glomerular Filt Rate 71 ml/min (>60); GFR (African American) 86 ML/MIN (>60); Glucose 133 mg/dl (74-100)
== END ==
PROVIDERS: Visit Provider Nurse Practitioner Family
DX: E11.42 Type 2 diabetes mellitus with diabetic polyneuropathy (principal); E78.2 Mixed hyperlipidemia; I45.2 Bifascicular block; R06.09 Other forms of dyspnea; Z95.1 Presence of aortocoronary bypass graft; F17.200 Nicotine dependence, unspecified, uncomplicated; Z79.4 Long term (current) use of insulin; I20.0 Unstable angina; Z01.810 Encounter for preprocedural cardiovascular examination; Z03.818 Encounter for observation for suspected exposure to other biological agents ruled out
CPT/HCPCS: 36415; 80048; 84484; 85025; 86328

== ENCOUNTER 2020-06-19 08:36 | Day surgery (SDC) | payer MEDICARE, MEDICAID, SELFPAY ==
[2020-06-19] VITALS (13 sets, daily range): BP systolic 124–154; BP diastolic 73–91; PULSE 69–81; RESP 16–18; TEMP 36.6; O2SAT 91–99; BMI 20.9
--- NOTE | 2020-06-19 08:58 | IR_ITS ---
APPROVED REPORT Patient Location: Outpatient Country Sales Manager: FILOMENA Dill RT (R) PROCEDURES Left heart catheterization Left ventriculogram Selective coronary angiogram Left internal mammary angiography Selective engage in the saphenous vein graft to the circumflex artery Selective gating the saphenous vein graft to the right coronary Drug-eluting stent deployment to the saphenous vein graft supplying the circumflex artery INDICATION Known coronary disease, History of coronary bypass surgery, Accelerated angina pectoris Informed consent was obtained prior to the procedure. COMPLICATIONS none Estimated Blood Loss: less than 10 mls TECHNIQUE One percent lidocaine used to anesthetize the right groin. The right femoral artery was accessed via the Seldinger technique and a 5 Libyan sheath was placed in the right femoral artery. A JL 4, JR4 catheter were used to perform left heart catheterization, left ventriculogram selective coronary angiography as well as selective engagement of the 2 vein grafts and the left internal mammary artery. At the end the diagnostic angiogram therapeutic heparin was administered giving a therapeutic ACT and the 5 Libyan sheath was exchanged for a 6 [place]yan sheath. An LCB guide catheter was used to intubate the saphenous vein graft to the circumflex artery and a Choice PT extra-support wire was placed distally. A 3 mm x 38 mm resolute Sim stent was deployed at 18 roberta reducing the severe tandem stenoses to 0%. ARIADNA-3 flow was present before and after the procedure. At the end of the procedure the apparatus was removed the groin was reprepped gloves were changed sheath was removed good hemostasis was achieved using Perclose device patient was transferred to the postop putting in stable addition ANGIOGRAPHIC RESULTS The left main artery Is patent The left anterior descending artery Has a stent in the ostial proximal through mid segment. 60 to 70% stenosis in the distal aspect of the stent. Competitive flow is identified from the left internal mammary artery however antegrade flow is achieved down the LAD. Distally there is a long 90% stenosis as the vessel approaches and wraps the apex The circumflex artery Is a dominant vessel and proximally occluded distally the vessel reconstitutes via left to left collaterals The right coronary artery Is probably a nondominant dominant and subtotally occluded in the proximal mid segment The STAPLES ventriculogram reveals Ejection fraction 45 to 50% The left ventricular end-diastolic pressure 10 mmHg The FISHER graft to the LAD is widely patent The saphenous vein graft to the circumflex artery has tandem 80% stenoses proximal and distal to the stent in the vein graft distally this supplies a moderate to large circumflex system Saphenous vein graft to the right coronary artery is widely patent. This is a narrow graft with no significant stenosis. The posterior descending artery is a smaller system distally IMPRESSION Severe stenosis within the saphenous vein graft supplying the large circumflex system Successful stenting of the saphenous vein graft supplying circumflex system severe tandem lesions reduced to 0% with one long drug-eluting stent Slightly reduced ejection fraction Normal left ventricular end-diastolic pressure Coronary artery disease as described above PLAN 1. Plavix and aspirin 2. LDL less than 55 3. Cardiac rehabilitation 4. Avoidance of tobacco products 5. Aggressive risk factor modification Electronically signed by : Ibrahima Musa, 06/19/2020 12:29:53
[2020-06-19 10:00] LABS: Coronavirus 19 IgG Antibody Negative (Negative); Coronavirus 19 IgM Antibody Negative (Negative)
[2020-06-19 14:15] LABS: CATHL Activated Clotting Time 250 SEC (74-125)
--- NOTE | 2020-06-19 15:57 | HMH.PHACLD ---
Madie Caraballo has received discharge medication counseling on the following medications: PATIENT STARTED ON ALTACE 2.5 MG DAILY AND ATORVASTATIN 40 MG HS. PATIENT CURRENTLY TAKING METOPROLOL SUCCINATE 50 MG DAILY, CLOPIDOGREL 75 MG DAILY, ASPIRIN DR 81 MG DAILY.
== END 2020-06-19 15:38 | disposition home or self-care (01) ==
LOC: CATHLAB 08:38
PROVIDERS: PCP Nurse Practitioner Family; Visit Provider Internal Medicine
DX: E11.42 Type 2 diabetes mellitus with diabetic polyneuropathy (principal); E78.2 Mixed hyperlipidemia; Z72.0 Tobacco use; I45.2 Bifascicular block; R94.31 Abnormal electrocardiogram [ECG] [EKG]; Z95.1 Presence of aortocoronary bypass graft; I25.110 Atherosclerotic heart disease of native coronary artery with unstable angina pectoris
CPT/HCPCS: 85347; 86328; 92937; 93459; 99152; 99153; C1725; C1760; C1769; C1876; C1894; C9604; J1644; Q9967

== ENCOUNTER → 2020-09-19 09:55 | Outpatient (CLI) | payer MEDICARE, MEDICAID, SELFPAY ==
--- NOTE | 2020-09-19 | CA_ITS ---
APPROVED REPORT Right Lower Extremity Venous Study for DVT. Parking Meter Servicer: Celine Hidalgo RVT Indications Lower Extremity Pain: Right Lower Extremity Edema: Right History of Smoking RT ANKLE SWELLING,PRIOR STENTS RLE,HLD Vein Imaging CFV (R): compressive, spontaneous, phasic, augmentation FEM (R): compressive, spontaneous, phasic, augmentation POP (R): compressive, spontaneous, phasic, augmentation PTV (R): Non-Compressible, Thrombus GSV (R): Compressible Peroneals (R):Compressible GAS (R): Compressible Findings Study suggests DVT of the right posterior tibial vein. Other deep veins of the right lower extremity are normal. Study suggests no evidence of SVT of the right lower extremity. Conclusion Study suggests DVT of the right posterior tibial vein. Other deep veins of the right lower extremity are normal. Study suggests no evidence of SVT of the right lower extremity. Critical Notification Physician Notified Date: 09/19/2020 Time: 11:13 Physician Name: Gurpreet Quevedo's office Electronically signed by : James Griggs MD 09/19/2020 16:54:18
--- NOTE | 2020-09-19 10:10 | XR_ITS ---
PROCEDURE INFORMATION: Exam: XR Right Ankle Exam date and time: 09/19/2020 10:10 AM Age: 70 years old Clinical indication: Pain; Ankle; Right; Additional info: Acute RT ankle pain TECHNIQUE: Imaging protocol: XR Right ankle. Views: 3 or more views. COMPARISON: CR XR ANKLE RT MIN 3V 10/27/2019 10:34 AM FINDINGS: Bones/joints: There is diffuse demineralization. There is no fracture or subluxation. Soft tissues: There is no soft tissue swelling. IMPRESSION: No acute fracture.
== END ==
PROVIDERS: PCP Nurse Practitioner Family; Visit Provider Nurse Practitioner Family
DX: M79.604 Pain in right leg (principal); M25.571 Pain in right ankle and joints of right foot
CPT/HCPCS: 73610; 93971

== ENCOUNTER 2020-10-13 14:56 | Emergency (ER) | payer MEDICARE, MEDICAID, SELFPAY ==
[2020-10-13] VITALS (10 sets, daily range): BP systolic 107–152; BP diastolic 69–84; PULSE 80–102; RESP 16–29; TEMP 36.5; O2SAT 95–98; BMI 21.1
--- NOTE | 2020-10-13 15:03 | ECG_ITS ---
APPROVED REPORT Exam: Resting ECG HR:93 bpm ECG Measurements Heart Rate 93 AXES SC 148 P 7 QRSd 120 QRS -51 QT 394 T 72 QTc 489 Conclusion Normal sinus rhythm Right bundle branch block Left anterior fascicular block Bifascicular block Moderate voltage criteria for LVH, may be normal variant Abnormal ECG Electronically signed by : Harrison Jama, 10/13/2020 16:37:31
--- NOTE | 2020-10-13 15:07 | HMH.EDGENADL ---
ED Disposition Clinical Impression: Bronchitis Rib fractures Qualifiers: Encounter type: initial encounter Fracture type: closed Laterality: right Qualified Code(s): S22.41XA - Multiple fractures of ribs, right side, initial encounter for closed fracture Back contusion Qualifiers: Encounter type: initial encounter Laterality: unspecified laterality Qualified Code(s): S20.229A - Contusion of unspecified back wall of thorax, initial encounter Contusion, hip Qualifiers: Encounter type: initial encounter Laterality: right Qualified Code(s): S70.01XA - Contusion of right hip, initial encounter Disposition: Home, Self-Care Condition on Discharge: Good Instructions: How to Prevent Falls, DI for Rib Fracture, DI for Acute Bronchitis, DI for Contusion, DI for Thoracic Back Pain, DI for Low Back Pain Additional Instructions: Tylenol 3 as needed for pain. Zithromax as prescribed. Follow-up with your primary care doctor within the next 2 to 3 days, call tomorrow to make appointment. Return to the emergency department if difficulty breathing, fever, uncontrollable pain. Prescriptions: Acetaminophen with Codeine [Tylenol with Codeine #3 tablet] 1 tab PO Q6HP PRN #12 tab PRN Reason: Moderate Pain Transmission Status: Sent to [facility] Azithromycin [Zithromax 250mg tab] 250 mg PO DAILY #4 tab Transmission Status: Pending to [facility] Referrals: Kiera Quevedo APRN [Primary Care Provider] - - Critical Care Critical Care Time: No Attestation: On , the high probability of a clinically significant, sudden or life threatening deterioration of the following system(s) required my full and direct attention, intervention and personal management. The time I documented below is in addition to time spent performing reported procedures but includes the following listed in this critical care notation. Medical Decision Making - Andrew Inquiry Pt receiving controlled substance: No Vital Signs: 10/13/20 14:57 10/13/20 15:03 10/13/20 15:30 Temperature 97.7 F Temperature Source Oral Pulse Rate 92 H 91 H Pulse Rate [Right] 91 H Respiratory Rate 16 22 Blood Pressure 131/84 125/77 Blood Pressure [Right Arm] 131/84 Blood Pressure Mean [Right Arm] 99 02 Sat by Pulse Oximetry 95 98 97 Oxygen Delivery Method Room Air 10/13/20 15:50 10/13/20 16:45 10/13/20 17:00 Temperature Temperature Source Pulse Rate 92 H 91 H 89 Pulse Rate [Right] Respiratory Rate 16 19 19 Blood Pressure 115/70 128/76 142/73 H Blood Pressure [Right Arm] Blood Pressure Mean [Right Arm] 02 Sat by Pulse Oximetry 97 98 98 Oxygen Delivery Method 10/13/20 17:30 10/13/20 17:51 10/13/20 18:00 Temperature Temperature Source Pulse Rate 80 102 H Pulse Rate [Right] Respiratory Rate 18 29 H 18 Blood Pressure 120/69 152/81 H 136/78 Blood Pressure [Right Arm] Blood Pressure Mean [Right Arm] 02 Sat by Pulse Oximetry 97 98 Oxygen Delivery Method - Lab Data Lab Results 10/13/20 15:27: WBC 11.3 H, RBC 4.30, Hgb 11.5 L, Hct 38.2, MCV 88.8, MCH 26.6 L, MCHC 30.0 L, RDW 15.9, Plt Count 342, MPV 8.4, Neut % (Auto) 64.1, Lymph % (Auto) 25.8, Morris % (Auto) 8.3, Eos % (Auto) 0.9, Baso % (Auto) 0.9, Neut # (Auto) 7.3, Lymph # (Auto) 2.9, Morris # (Auto) 0.9, Eos # (Auto) 0.1, Baso # (Auto) 0.1 10/13/20 15:27: Sodium 135 L, Potassium 4.4, Chloride 103, Carbon Dioxide 25, Anion Gap 11.4, BUN 7, Creatinine 0.70, Estimated Creat Clear 41, Estimated GFR 82, Est GFR ( Amer) 100, Glucose 123 H, Calcium 8.9, Troponin I < 0.01 Result diagrams: 10/13/20 15:27 10/13/20 15:27 Orders (Tests/Meds): ED MEDICATIONS Discontinued Medications Generic Name Dose Route Start Last Admin Trade Name Freq PRN Reason Stop Dose Admin Acetaminophen/Codeine Phosphate 1 yakov 10/13/20 18:18 Acetaminophen 300mg W/Codeine 30mg Take Home Pack (6) PO 10/13/20 18:19 ONCE ONE Iopamidol
--- NOTE | 2020-10-13 15:18 | XR_ITS ---
PROCEDURE INFORMATION: Exam: XR Right Hip Exam date and time: 10/13/2020 3:18 PM Age: 70 years old Clinical indication: Injury or trauma; Fall; Blunt trauma (contusions or hematomas); Right; Hip TECHNIQUE: Imaging protocol: XR Right hip. Views: 2 or 3 views hip with pelvis when performed. COMPARISON: CT ABDOMEN PELVIS W CON 10/13/2020 4:07 PM FINDINGS: Bones/joints: Normal anatomic alignment. There is no evidence of acutely displaced fractures. There is no evidence of dislocation. No aggressive osseous lesions. Soft tissues: There is no significant soft tissue swelling. Vasculature: Vascular stents project in the right inguinal region. There are numerous benign phleboliths in the pelvis. IMPRESSION: Negative for acute skeletal pathology.
--- NOTE | 2020-10-13 15:22 | CT_ITS ---
PROCEDURE INFORMATION: Exam: CT Abdomen And Pelvis With Contrast Exam date and time: 10/13/2020 3:22 PM Age: 70 years old Clinical indication: Injury or trauma; Fall; Blunt; Generalized TECHNIQUE: Imaging protocol: Computed tomography of the abdomen and pelvis with contrast. Radiation optimization: All CT scans at this facility use at least one of these dose optimization techniques: automated exposure control; mA and/or kV adjustment per patient size (includes targeted exams where dose is matched to clinical indication); or iterative reconstruction. Contrast material: ISOVUE; Contrast volume: 100 ml; Contrast route: IV; COMPARISON: CT ABDOMEN PELVIS W CON 04/02/2019 6:40 PM FINDINGS: Liver: There is a diffuse decrease in hepatic parenchymal density, consistent with fatty infiltration. The liver demonstrates punctate calcifications, consistent with remote granulomatous organism exposure. The liver is otherwise unremarkable. Gallbladder and bile ducts: Prior cholecystectomy. There is no evidence of biliary ductal dilation. Pancreas: Normal. No ductal dilation. Spleen: The spleen demonstrates punctate calcifications, consistent with remote granulomatous organism exposure. The spleen is otherwise unremarkable. Adrenal glands: Normal. No mass. Kidneys and ureters: Horseshoe kidney. Bilateral parapelvic renal cysts. 3 cm cyst in the medullary breach of the horseshoe kidney. Old these renal findings are stable. No acute renal findings are appreciated. The ureters are normal. Stomach and bowel: No bowel obstruction or significant bowel wall thickening. There is excessive colonic stool content. Appendix: A normal appendix is identified. Intraperitoneal space: Unremarkable. No free air. No significant fluid collection. Vasculature: The vasculature demonstrates diffuse marked atherosclerotic calcification. Right femoral artery stents. Lymph nodes: Unremarkable. No enlarged lymph nodes. Urinary bladder: Unremarkable as visualized. Reproductive: There has been a hysterectomy. Bones/joints: No acute skeletal pathology. Moderate multilevel degenerative changes of the spine, as manifested by multilevel anterior osteophytes and multilevel decrease in intervertebral disc space. Soft tissues: Posttraumatic soft tissue swelling lateral to the right iliac bone. Mild posttraumatic soft tissue swelling in the right buttock. IMPRESSION: 1. Posttraumatic soft tissue swelling lateral to the right iliac bone and in the right buttock. 2. No other acute posttraumatic abdominopelvic injury is appreciated. 3. Incidental findings as detailed above. COMMENTS: Consistent with the [employer]'s Incidental Findings Committee white paper (J Am Macy Radiol 2018): Any incidental renal lesion less than 1 cm or classified as too small to characterize, or any incidental cystic renal lesion characterized as simple-appearing, is likely benign. No follow-up imaging is recommended for these lesions per consensus recommendations based on imaging criteria.
--- NOTE | 2020-10-13 15:22 | CT_ITS ---
PROCEDURE INFORMATION: Exam: CT Thoracic Spine Without Contrast Exam date and time: 10/13/2020 3:22 PM Age: 70 years old Clinical indication: Injury or trauma; Fall; Blunt trauma (contusions or hematomas) TECHNIQUE: Imaging protocol: Computed tomography images of the thoracic spine without contrast. Radiation optimization: All CT scans at this facility use at least one of these dose optimization techniques: automated exposure control; mA and/or kV adjustment per patient size (includes targeted exams where dose is matched to clinical indication); or iterative reconstruction. COMPARISON: CR [id number] XR thoracic spine 3V 06/08/2018 9:25 AM FINDINGS: Tubes, catheters and devices: Neural stimulator electrodes project within the mid thoracic spinal canal. Vertebrae: There is no evidence of acutely displaced fractures. No acute skeletal pathology. Moderate multilevel degenerative changes of the spine, as manifested by multilevel anterior osteophytes and multilevel decrease in intervertebral disc space. Discs/Spinal canal/Neural foramina: The spinal canal is patent. No significant bony neural foraminal stenosis is appreciated. Soft tissues: No prevertebral or paravertebral soft tissue swelling. Other findings: There is no evidence of dislocation. IMPRESSION: Negative for acute skeletal pathology. COMMENTS: Please review chest CT performed concomitantly.
--- NOTE | 2020-10-13 15:22 | CT_ITS ---
PROCEDURE INFORMATION: Exam: CT Lumbar Spine Without Contrast Exam date and time: 10/13/2020 3:22 PM Age: 70 years old Clinical indication: Injury or trauma; Fall; Blunt trauma (contusions or hematomas) TECHNIQUE: Imaging protocol: Computed tomography images of the lumbar spine without contrast. Radiation optimization: All CT scans at this facility use at least one of these dose optimization techniques: automated exposure control; mA and/or kV adjustment per patient size (includes targeted exams where dose is matched to clinical indication); or iterative reconstruction. COMPARISON: No relevant prior studies available. FINDINGS: Tubes, catheters and devices: Partially visualized neural stimulator circuit in the posterior lower thoracic soft tissues. Vertebrae: No acute skeletal pathology. Moderate multilevel degenerative changes of the spine, as manifested by multilevel anterior osteophytes and multilevel decrease in intervertebral disc space. Discs/Spinal canal/Neural foramina: The spinal canal is patent. Mild bilateral bony neural foraminal stenosis appreciated at L3-L4. Mild bilateral bony neural foraminal stenosis appreciated at L5-S1. No other significant bony neural foraminal stenosis is appreciated. Soft tissues: No prevertebral or paravertebral soft tissue swelling. IMPRESSION: Negative for acute skeletal pathology. COMMENTS: Please review abdomen and pelvic CT performed concomitantly.
--- NOTE | 2020-10-13 15:24 | CT_ITS ---
PROCEDURE INFORMATION: Exam: CTA Chest With Contrast Exam date and time: 10/13/2020 3:24 PM Age: 70 years old Clinical indication: Injury or trauma; Fall; Blunt trauma (contusions or hematomas); Prior surgery; Additional info: Fall today C/O right sided rib pain TECHNIQUE: Imaging protocol: Computed tomographic angiography of the chest with contrast. 3D rendering (Not supervised by radiologist): MIP and/or 3D reconstructed images were created by the technologist. Radiation optimization: All CT scans at this facility use at least one of these dose optimization techniques: automated exposure control; mA and/or kV adjustment per patient size (includes targeted exams where dose is matched to clinical indication); or iterative reconstruction. Contrast material: ISOVUE; Contrast volume: 100 ml; Contrast route: INTRAVENOUS (IV); COMPARISON: CT ANGIO CHEST 04/02/2019 6:40 PM FINDINGS: Tubes, catheters and devices: Neural stimulator electrodes project within the thoracic spinal canal. Pulmonary arteries: Normal. No pulmonary emboli. Aorta: There is ectasia of the mid ascending thoracic aorta measuring 3.8 cm. The aorta demonstrates moderate atherosclerotic calcification. No acute aortic pathology. Veins: There is a fat density eccentric elongated/cylindrical structure which appears to project within the SVC, however is actually adjacent an indenting upon it. This is compatible with adjacent indenting mediastinal fat. Thyroid: Calcifications in the thyroid gland may be further evaluated with nonemergent ultrasound. Lungs: Scarring and atelectasis in the right lung base. Lungs are otherwise clear. There is debris within the right lower lobar bronchus as well. Remainder of the airways are patent. Pleural spaces: Unremarkable. No pneumothorax. No pleural effusion. Heart: Sternotomy wires and mediastinal surgical clips are present, consistent with previous coronary arterial bypass grafting. Heart is of normal size and morphology. There is severe atherosclerotic calcification of the coronary arteries. Coronary artery stents are noted. There is calcification of the aortic valve annulus. No pericardial thickening or effusion. Mediastinal space: Calcified mediastinal and hilar granulomas are of no clinical concern. Debris within the distal trachea and right mainstem bronchus. Lymph nodes: Unremarkable. No enlarged lymph nodes. Bones/joints: Cortical irregularities at the anterior segments of the 5th, 6th, 7th, and 8th right ribs are felt to be chronic in etiology. Moderate multilevel degenerative changes of the thoracic spine. Soft tissues: Unremarkable. IMPRESSION: 1. Debris within the distal trachea, right mainstem bronchus, and right lower lobar bronchus. Aspirated content to be entertained. 2. Findings in the right lung base are most probably related to atelectasis. Developing aspiration pneumonia should be entertained. 3. Findings at the anterior segments of the 5th, 6th, 7th, and 8th right ribs are felt to be chronic in etiology. Nevertheless, correlation with point tenderness at this level is recommended. 4. No other acute thoracic pathology is otherwise appreciated. 5. Incidental findings as detailed above.
[2020-10-13 15:37] LABS: Basophils # 0.1 K/mm3 (0-0.2); Basophils % 0.9 % (0.1-2.0); Eosinophils # 0.1 K/mm3 (0.0-0.4); Eosinophils % 0.9 % (0.1-12.0); Hematocrit 38.2 % (37.0-47.0); Hemoglobin 11.5 g/dL (12.2-16.2); Lymphocytes # 2.9 K/mm3 (0.7-4.5); Lymphocytes % 25.8 % (10-50); Mean Corpuscular Hemoglobin 26.6 pg (27.0-31.2); Mean Corpuscular Volume 88.8 fl (81-99); Mean Platelet Volume 8.4 fl (7.4-10.4); Monocytes # 0.9 K/mm3 (0.1-1.0); Monocytes % 8.3 % (1.7-9.3); Neutrophils # 7.3 K/mm3 (1.8-7.8); Neutrophils % 64.1 % (37.0-80.0); Platelet Count 342 K/mm3 (142-424); Red Cell Distribution Width 15.9 % (11.5-17.5); White Blood Count 11.3 K/mm3 (4.8-10.8)
[2020-10-13 15:42] LABS: Chloride 103 mmol/L (98-107); Potassium 4.4 mmoL/L (3.5-5.1); Sodium 135 mmol/L (136-145)
[2020-10-13 15:45] LABS: Blood Urea Nitrogen 7 mg/dl (7-17); Creatinine Clearance Estimated 41 mL/min (50-200); Estimated Glomerular Filt Rate 82 ml/min (>60); GFR (African American) 100 ML/MIN (>60)
[2020-10-13 15:46] LABS: Anion Gap 11.4 mEq/L (5-15); Calcium 8.9 mg/dl (8.4-10.2); Carbon Dioxide 25 mmol/L (22.0-30.0); Glucose 123 mg/dl (74-100)
[2020-10-13 15:58] LABS: Troponin I < 0.01 ng/ml (0.00-0.034)
== END 2020-10-13 18:37 | disposition home or self-care (01) ==
PROVIDERS: Emergency Provider Emergency Medicine; PCP Nurse Practitioner Family
DX: S22.41XA Multiple fractures of ribs, right side, initial encounter for closed fracture (principal); S20.229A Contusion of unspecified back wall of thorax, initial encounter; S70.01XA Contusion of right hip, initial encounter; W18.39XA Other fall on same level, initial encounter; Y92.012 Bathroom of single-family (private) house as the place of occurrence of the external cause; I25.10 Atherosclerotic heart disease of native coronary artery without angina pectoris; J44.9 Chronic obstructive pulmonary disease, unspecified; I10 Essential (primary) hypertension; K21.9 Gastro-esophageal reflux disease without esophagitis; E78.5 Hyperlipidemia, unspecified; E11.9 Type 2 diabetes mellitus without complications
CPT/HCPCS: 71275; 72128; 72131; 73502; 74177; 80048; 84484; 85025; 93005; 96374; 96375; 99282; J2405; Q9967

== ENCOUNTER → 2020-12-30 14:35 | Outpatient (CLI) | payer MEDICARE, MEDICAID, SELFPAY ==
--- NOTE | 2020-12-30 | CA_ITS ---
APPROVED REPORT Right Lower Extremity Venous Study for DVT Nature Photographer: CICI Indications Lower Extremity Pain: Right Lower Extremity Edema: Right DVT of Lower Extremity: Right Current Smoker Lower Extremity Swelling: Right Patient had DVT in right PTV 09/19/20. Patient states she started having right lower extremity pain 1 week ago that seems to be getting worse. She denies any recent trauma. Risk Factors Prior Phlebitis/DVT Current Smoker Past History DVT : Right Date : 09/19/20 Medications Plavix Aspirin Patient takes Xarelto daily since DVT diagnosis 09/19/20. Vein Imaging CFV (R): compressive, spontaneous, phasic, augmentation FEM (R): compressive, spontaneous, phasic, augmentation POP (R): compressive, spontaneous, phasic, augmentation PTV (R): Non-Compressible, Thrombus GSV (R): Compressible Peroneals (R):Compressible GAS (R): Partially Compressible Findings Compared to the previous study done 09/19/20 there is persistent DVT seen in the right PTV as well as a single vessel thrombus noted in the gastrocnemius vein Conclusion Compared to the previous study done 09/19/20 there is persistent DVT seen in the right PTV as well as a single vessel thrombus noted in the gastrocnemius vein Electronically signed by : James Griggs MD 12/30/2020 16:49:36
[2020-12-30 16:38] LABS: Basophils # 0.1 K/mm3 (0-0.2); Eosinophils # 0.1 K/mm3 (0.0-0.4); Eosinophils % 1.2 % (0.1-12.0); Hematocrit 35.2 % (37.0-47.0); Hemoglobin 10.9 g/dL (12.2-16.2); Lymphocytes # 3.9 K/mm3 (0.7-4.5); Lymphocytes % 34.6 % (10-50); Mean Corpuscular HGB Conc 30.9 g/dL (31.8-35.4); Mean Corpuscular Hemoglobin 25.7 pg (27.0-31.2); Mean Corpuscular Volume 83.1 fl (81-99); Mean Platelet Volume 8.2 fl (7.4-10.4); Monocytes # 0.9 K/mm3 (0.1-1.0); Monocytes % 8.1 % (1.7-9.3); Neutrophils # 6.2 K/mm3 (1.8-7.8); Platelet Count 430 K/mm3 (142-424); Red Blood Count 4.24 M/mm3 (4.20-5.40); Red Cell Distribution Width 15.6 % (11.5-17.5); White Blood Count 11.3 K/mm3 (4.8-10.8)
[2020-12-30 18:07] LABS: Alanine Aminotransferase 10 U/L (12-78); Albumin Level 3.2 g/dl (3.5-5.0); Albumin/Globulin Ratio 1.2 (1.1-1.8); Alkaline Phosphatase 157 U/L (38-126); Anion Gap 9.5 mEq/L (5-15); Aspartate Amino Transferase 18 U/L (14-36); Bilirubin,Total 0.3 mg/dl (0.2-1.3); Blood Urea Nitrogen 3 mg/dl (7-17); Calcium 8.4 mg/dl (8.4-10.2); Carbon Dioxide 27 mmol/L (22.0-30.0); Chloride 108 mmol/L (98-107); Estimated Glomerular Filt Rate 99 ml/min (>60); GFR (African American) 119 ML/MIN (>60); Globulin 2.6 g/dL (1.3-3.2); Glucose 130 mg/dl (74-100); Potassium 4.5 mmoL/L (3.5-5.1); Sodium 140 mmol/L (136-145); Total Protein,Serum 5.8 g/dl (6.3-8.2)
[2020-12-30 18:12] LABS: C-Reactive Protein 4.1 mg/L (0-4)
== END ==
PROVIDERS: PCP Nurse Practitioner Family; Visit Provider Nurse Practitioner Family
DX: I82.441 Acute embolism and thrombosis of right tibial vein (principal)
CPT/HCPCS: 36415; 80053; 85025; 86140; 93971

== ENCOUNTER 2021-01-31 12:31 | Emergency (ER) | payer MEDICARE, MEDICAID, SELFPAY ==
[2021-01-31 12:32] VITALS: BP 122/72; PULSE 94; RESP 20; TEMP 36.3; O2SAT 98; BMI 19.1
--- NOTE | 2021-01-31 13:42 | HMH.EDUTC ---
[facility] – [place] Disposition Clinical Impression: Exposure to COVID-19 virus Disposition: Home, Self-Care Condition on Discharge: Good Instructions: Preventing the Spread of Coronavirus Discharge Instructions Additional Instructions: Drink plenty of fluids. Take tylenol or ibuprofen for pain or fever. Follow up with your regular doctor. GO TO THE ER FOR ANY WORSENING SYMPTOMS Quarantine until you know the results of your covid-19 test. If it is positive, the health department should call you and give you further instructions about your length of Quarantine and other things. Notify your school or workplace of your results and follow their instructions regarding return to work/school. Referrals: Kiera Quevedo APRN [Primary Care Provider] - Time of Disposition: 13:47 Medical Decision Making - Medical Records Medical records reviewed: No: I reviewed the patient's medical records. - Andrew Inquiry Pt receiving controlled substance: No Vital Signs: 01/31/21 12:32 01/31/21 14:00 Temperature 97.4 F L 97.4 F L Temperature Source Oral Pulse Rate 94 H Pulse Rate [Left Radial] 94 H Respiratory Rate 20 20 Blood Pressure 122/72 Blood Pressure [Right Arm] 122/72 Blood Pressure Mean [Right Arm] 88 Blood Pressure Source [Right Arm] Automatic Cuff Blood Pressure Position [Right Arm] Sitting 02 Sat by Pulse Oximetry 98 Oxygen Delivery Method Room Air Room Air Orders (Tests/Meds): ORDERS Category Date Time Status Covid-19 Nasal PCR ([facility]) Routine Lab 01/31/21 13:30 Received [facility] – [place], [place] HPI - General Stated complaint: covid test / exposure Time Seen by Provider: 01/31/21 13:42 - History of Present Illness Provider Complaint: She was exposed to covid-19 last week. She denies any symptoms so far. - Related Data Home Medications Medication Instructions Recorded Confirmed metoclopramide HCl 10 mg tablet 10 mg PO BID tab 06/14/17 10/29/20 montelukast 10 mg tablet 10 mg PO QPM 06/14/17 10/29/20 pantoprazole 40 mg tablet,delayed 40 mg PO BID tab 06/14/17 10/29/20 release Insulin Glargine,Hum.rec.anlog 10 unit SQ BID 07/27/17 10/29/20 [[place]] aspirin 81 mg tablet,delayed 81 mg PO DAILY tab 02/01/18 10/29/20 release buspirone 10 mg tablet 10 mg PO DAILY tab 02/01/18 10/29/20 clopidogrel 75 mg tablet 75 mg PO DAILY 02/01/18 10/29/20 metformin 500 mg tablet 500 mg PO BID 02/01/18 10/29/20 gabapentin 600 mg tablet 600 mg PO DAILY 04/18/18 10/29/20 quetiapine 200 mg tablet,extended 400 mg PO DAILY tab 07/17/19 10/29/20 release 24 hr Linaclotide [Linzess] 145 mcg PO DAILY 06/19/20 10/29/20 Rizatriptan Benzoate [Rizatriptan] 10 mg PO DAILY 06/19/20 10/29/20 polyethylene glycoL 3350 [Miralax 17 gm PO DAILY 06/19/20 10/29/20 17gm Packet] Previous Rx's Medication Instructions Recorded ranolazine 500 mg tablet,extended 500 mg PO BID #60 tab 06/22/19 release,12 hr metoprolol succinate 50 mg 50 mg PO DAILY #90 tab 09/01/19 tablet,extended release 24 hr nitroglycerin 0.4 mg sublingual 0.4 mg SUBLINGUAL Q5M PRN #20 tab 05/28/20 tablet Acetaminophen with Codeine 1 tab PO Q6HP PRN #12 tab 10/13/20 [Tylenol with Codeine #3 tablet] Azithromycin [Zithromax 250mg 250 mg PO DAILY #4 tab 10/13/20 tab] atorvastatin 40 mg tablet See Rx Instructions .ROUTE 12/11/20 .COMPLEX #90 tablet isosorbide mononitrate 30 mg See Rx Instructions .ROUTE 12/11/20 tablet,extended release 24 hr .COMPLEX #30 tab ramipril 2.5 mg capsule See Rx Instructions .ROUTE 12/11/20 .COMPLEX #30 capsule Allergies Allergy/AdvReac Type Severity Reaction Status Date / Time levofloxacin [From LEVAQUIN] Allergy Severe S-SWELLS-OR Verified 10/29/20 09:59 AL/THROAT meperidine [MEPERIDINE] Allergy Severe S-SWELLS-OR Verified 10/29/20 09:59 AL/THROAT [facility] History - Hepatitis A Screen Attestation statement:: This patient has been screened for Hepatitis A risk facto
[2021-01-31 14:00] VITALS: BP 122/72; PULSE 94; RESP 20; TEMP 36.3; O2SAT 98
== END 2021-01-31 14:01 | disposition home or self-care (01) ==
PROVIDERS: Emergency Provider Nurse Practitioner Family; PCP Nurse Practitioner Family
DX: Z20.822 Contact with and (suspected) exposure to COVID-19 (principal); J45.909 Unspecified asthma, uncomplicated; E11.9 Type 2 diabetes mellitus without complications; K21.9 Gastro-esophageal reflux disease without esophagitis; I10 Essential (primary) hypertension; F17.210 Nicotine dependence, cigarettes, uncomplicated; Z79.899 Other long term (current) drug therapy
CPT/HCPCS: G0463; 99202; U0003

== ENCOUNTER 2021-03-04 17:49 | Emergency (ER) | payer MEDICARE, MEDICAID, SELFPAY ==
--- NOTE | 2021-03-04 17:49 | PC.NURSE ---
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
--- NOTE | 2021-03-04 18:06 | PC.NURSE ---
family to BS at this time
--- NOTE | 2021-03-04 18:19 | PC.NURSE ---
spoke with petr pradhan, states they will not be following pt for donation case id number [id number]
--- NOTE | 2021-03-04 18:21 | PC.NURSE ---
[employer] advised of pt , family advised that they wanted [place] home
--- NOTE | 2021-03-04 18:28 | HMH.EDGENADL ---
ED Disposition Clinical Impression: Cardiopulmonary arrest Disposition: Condition on Discharge: Referrals: Provider,Referral, [Primary Care Provider] - Time of Disposition: 18:37 - Critical Care Critical Care Time: Yes Attestation: On 03/04/21, the high probability of a clinically significant, sudden or life threatening deterioration of the following system(s) required my full and direct attention, intervention and personal management. The time I documented below is in addition to time spent performing reported procedures but includes the following listed in this critical care notation. Total Critical Care Time: 35 Vital system(s) involved:: Circulatory Failure, Respiratory Failure My critical care processes included: Assessment & monitoring of V/S, Initial and Re-exams, Data Review/Interpretation, Coordinating Care, Medication Orders and management, Documentation Medical Decision Making - Medical Records Medical records reviewed: Yes: I reviewed the patient's medical records. - Andrew Inquiry Pt receiving controlled substance: No Medical Decision Narrative: Patient arrived CPR in progress. 1 more round of epinephrine given CPR continued. At pulse check, patient continues to be in asystole. She is been down for over an hour at this time. Efforts were ceased and the patient was pronounced at 1757. General Adult HPI - General Stated complaint: code blue Time Seen by Provider: 03/04/21 17:49 Mode of Arrival: EMS Source of Information: EMS - History of Present Illness HPI narrative: 70yo F brought into the emergency department by EMS as a CPR in progress. EMS reports upon arrival to the patient's house she was bradycardic and minimally responsive. Shortly thereafter she lost her pulse and CPR was initiated. Patient has received 3 rounds of epinephrine prior to arrival. EMS reports she has been down almost 1 hour upon arrival to the emergency department. She has been in asystole during their entire transport. EMS reports that family was at the house and this was a witnessed arrest. Family reported that time the patient had not been feeling well for 2 days and complained of being short of breath. Patient has past medical history of CAD and appears to had open heart surgery. - Related Data Home Medications Medication Instructions Recorded Confirmed metoclopramide HCl 10 mg tablet 10 mg PO BID tab 06/14/17 10/29/20 montelukast 10 mg tablet 10 mg PO QPM 06/14/17 10/29/20 pantoprazole 40 mg tablet,delayed 40 mg PO BID tab 06/14/17 10/29/20 release Insulin Glargine,Hum.rec.anlog 10 unit SQ BID 07/27/17 10/29/20 [[place]] aspirin 81 mg tablet,delayed 81 mg PO DAILY tab 02/01/18 10/29/20 release buspirone 10 mg tablet 10 mg PO DAILY tab 02/01/18 10/29/20 clopidogrel 75 mg tablet 75 mg PO DAILY 02/01/18 10/29/20 metformin 500 mg tablet 500 mg PO BID 02/01/18 10/29/20 gabapentin 600 mg tablet 600 mg PO DAILY 04/18/18 10/29/20 quetiapine 200 mg tablet,extended 400 mg PO DAILY tab 07/17/19 10/29/20 release 24 hr Linaclotide [Linzess] 145 mcg PO DAILY 06/19/20 10/29/20 Rizatriptan Benzoate [Rizatriptan] 10 mg PO DAILY 06/19/20 10/29/20 polyethylene glycoL 3350 [Miralax 17 gm PO DAILY 06/19/20 10/29/20 17gm Packet] Previous Rx's Medication Instructions Recorded ranolazine 500 mg tablet,extended 500 mg PO BID #60 tab 06/22/19 release,12 hr metoprolol succinate 50 mg 50 mg PO DAILY #90 tab 09/01/19 tablet,extended release 24 hr nitroglycerin 0.4 mg sublingual 0.4 mg SUBLINGUAL Q5M PRN #20 tab 05/28/20 tablet Acetaminophen with Codeine 1 tab PO Q6HP PRN #12 tab 10/13/20 [Tylenol with Codeine #3 tablet] Azithromycin [Zithromax 250mg 250 mg PO DAILY #4 tab 10/13/20 tab] ramipril 2.5 mg capsule See Rx Instructions .ROUTE 02/04/21 .COMPLEX #30 cap atorvastatin 40 mg tablet See Rx Instructions .ROUTE 02/24/21 .COMPLEX #90 tab isosorbide mononi
[2021-03-04 18:36] VITALS: BMI 18.6
[2021-03-04 18:54] VITALS: BP 0/0; PULSE 0; RESP 0; TEMP -17.7; TEMP 0; O2SAT 0
== END 2021-03-04 18:54 | disposition expired ==
PROVIDERS: Emergency Provider Family Medicine
DX: I46.9 Cardiac arrest, cause unspecified; J44.9 Chronic obstructive pulmonary disease, unspecified; I25.10 Atherosclerotic heart disease of native coronary artery without angina pectoris; E11.9 Type 2 diabetes mellitus without complications; K21.9 Gastro-esophageal reflux disease without esophagitis; E78.5 Hyperlipidemia, unspecified; I10 Essential (primary) hypertension; I25.2 Old myocardial infarction; Z86.73 Personal history of transient ischemic attack (TIA), and cerebral infarction without residual deficits; Z72.0 Tobacco use; Z88.1 Allergy status to other antibiotic agents; Z88.5 Allergy status to narcotic agent
CPT/HCPCS: 31500; 96374; 99283